=== PATIENT | male | born 1960 | race Caucasian/White ===

== ENCOUNTER 2021-03-05 07:56 | Emergency (ER) | payer BC, OTHER ==
--- NOTE | 2021-03-05 08:38 | EDM.PDOC ---
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 Patient has chronic dyspnea and lung scarring. He presents today because of 3 days of sore throat nasal congestion and cough. He is always short of breath he thinks it is about the same as it typically is at this time. No fevers no myalgias or arthralgias. No chest pain. He does note for the last week that he gets up in the morning when he looks up he will have trouble with room spinning. No headache no other neurologic complaints. No radiation or other associated symptoms - Related Data Allergies Allergy/AdvReac Type Severity Reaction Status Date / Time No Known Allergies Allergy Verified 03/05/21 08:34 Home Meds: Home Meds Amoxicillin/Clavulanate K [Augmentin 875-125 MG] 1 tab PO BID 5 Days #10 tablet 03/05/21 [Rx] Doxycycline [Vibramycin] 100 mg PO BID 5 Days #10 cap 03/05/21 [Rx] ED ROS GENERAL - Review of Systems Review Of Systems: See Below Free Text/Narrative/Comment: General: No fever. Skin: No rash. Eyes: No vision problems. ENT: Per HPI Neck: No neck stiffness. Respiratory: Per HPI Cardiac: No chest pain. Gastrointestinal: No nausea, vomiting or abdominal pain. Urinary: No dysuria. Musculoskeletal: No myalgias/arthralgias. Neurologic: No headache. ED EXAM, GENERAL - Physical Exam Exam: See Below Free Text/Narrative:: General Appearance: No acute distress, appears comfortable HEENT: Normocephalic/atraumatic, sclera anicteric, mucous membranes moist, rhinorrhea nasal congestion Neck: Normal range of motion Chest and Lungs: Scant crackles at the bilateral bases lungs are otherwise clear without wheezing or rhonchi Cardiovascular: Regular rate and rhythm Musculoskeletal: No edema or tenderness Neurologic: Awake, alert, no obvious deficits, moving all extremities Psychiatric: Appropriate, cooperative Course - Vital Signs Last Recorded V/S: Last Vital Signs Temp 97.3 F 03/05/21 08:09 Pulse 107 H 03/05/21 08:09 Resp 28 H 03/05/21 08:09 BP 140/107 H 03/05/21 08:09 Pulse Ox 96 03/05/21 08:09 Departure - Departure Time of Disposition: :24 Disposition: Home, Self-Care 01 Condition: Good Clinical Impression: Cough - Discharge Information *PRESCRIPTION DRUG MONITORING PROGRAM REVIEWED*: Not Applicable *COPY OF PRESCRIPTION DRUG MONITORING REPORT IN PATIENT JANET: Not Applicable Prescriptions: Amoxicillin/Clavulanate K [Augmentin 875-125 MG] 1 tab PO BID 5 Days #10 tablet Doxycycline [Vibramycin] 100 mg PO BID 5 Days #10 cap Instructions: Upper Respiratory Infection, Adult, [id number] Referrals: PCP,Not In Area [Primary Care Provider] - Forms: ED Department Discharge Additional Instructions: Your symptoms are most likely caused by a viral upper respiratory infection. However, your prior history of COVID-19 and the lung scarring make it difficult to definitively exclude early pneumonia. Certainly your chest x-ray does not show any large bacterial pneumonia. However given your underlying lung function we have opted to do an empiric course of 2 antibiotics. Prescription is 5 days and be picked up at [facility]. If your symptoms worsen or you have any other new symptoms that concern you please call your doctor or return to the ER. The following information is given to patients seen in the emergency department who are being discharged to home. This information is to outline your options for follow-up care. We provide all patients seen in our emergency department with a follow-up referral. The need for follow-up, as well as the timing and circumstances, are variable depending upon the specifics of your emergency department visit. If you don't have a primary care physician on staff, we will provide you with a referral. We always advise you to contact your personal physician following an emergency department visit to inform them of the circumstance of the visit and for follow-up with them and/or the need for any referrals to a consulting specialist. The emergency department will also refer you to a specialist when appropriate. This referral assures that you have the opportunity for follow-up care with a specialist. All of these measure are taken in an effort to provide you with optimal care, which includes your follow-up. Under all circumstances we always encourage you to contact your private physician who remains a resource for coordinating your care. When calling for follow-up care, please make the office aware that this follow-up is from your recent emergency room visit. If for any reason you are refused follow-up, please contact the [facility] Emergency Department at and asked to speak to the emergency department charge nurse. Sepsis Event Note (ED) - Focused Exam Vital Signs: Vital Signs Temp Pulse Resp BP Pulse Ox 03/05/21 08:09 97.3 F 107 H 28 H 140/107 H 96 - Assessment/Plan Assessment:: 61-year-old male presented with signs and symptoms most consistent with viral upper respiratory infection. Symptoms do not suggest the flu or reinfection with COVID-19. Pneumonia needs to be considered given his prior lung history and x-ray ordered. Patient notes that his x-ray will likely be abnormal as he has chronic abnormalities related to his scarring. Patient has no chest pain and his oxygen saturation is normal for him. He has very poor lung function at baseline so the fact that he is maintaining his oxygen is a strong argument against a new acute pneumonia. Patient's vertigo is not present at this time. History of the vertigo is most consistent with positional vertigo. He has a steady gait has no cerebellar findings on exam. 0925: X-ray with extensive Covid-like changes as expected. Symptom is most likely viral but given the cough and significant underlying lung damage course of antibiotics for potential early pneumonia is felt prudent. Given the underlying lung disease will use a combination of Augmentin and doxycycline. Strict return precautions discussed and understood.
--- NOTE | 2021-03-05 08:59 | CR ---
HISTORY: Cough. COVID-19 pneumonia in 2019. COMPARISON: 12/29/2012. TECHNIQUE: Chest, 2 views. FINDINGS: Interstitial type opacities are present in both lungs. This could represent the sequelae of COVID-19 pneumonia. Acute infection with COVID-19 pneumonia is not excluded, and may be correlated with RT-PCR if there is concern. There is no pneumothorax or deep sulcus sign. The central airway is normal. The osseous structures are intact. IMPRESSION: Bilateral interstitial type opacities, new from 12/29/2012. See above discussion. Dictated by Olayinka Maddox MD @ 03/05/2021 8:57:57 AM (Electronically Signed)
== END 2021-03-05 09:40 | disposition home or self-care (01) ==
LOC: MW.ED 07:56
DX: R05.9 Cough, unspecified (principal)
CPT/HCPCS: 71046; 71046-26; 99284-25